=== PATIENT | female | born 1935 | race Caucasian/White ===

== ENCOUNTER 2018-03-23 11:34 | Emergency (ER) | payer MEDICARE, OTHER ==
--- NOTE | 2018-03-23 12:59 | EDM.PDOC ---
ED HPI GENERAL MEDICAL PROBLEM - General Chief Complaint: Abdominal Pain Stated Complaint: HERNIA ISSUES Time Seen by Provider: 03/23/18 12:58 Source of Information: Reports: Patient History Limitations: Reports: No Limitations - History of Present Illness INITIAL COMMENTS - FREE TEXT/NARRATIVE: pt arrived with abdomnal pain in the left side. She was very uncomfortable during the nite. She has a known ventral hernia. Onset: Other ( the pain was very bad last nite. She was seen brock constipation on at the clinic. ) Duration: Hour(s): Location: Reports: Abdomen Associated Symptoms: Reports: No Other Symptoms - Related Data Allergies Allergy/AdvReac Type Severity Reaction Status Date / Time No Known Allergies Allergy Verified 03/23/18 12:38 Home Meds: Home Meds Albuterol [Ventolin HFA] 03/23/18 [History] Budesonide/Formoterol [Symbicort 160-4.5 MCG] 03/23/18 [History] Fluticasone Furoate [Flonase Sensimist] 03/23/18 [History] Levothyroxine 03/23/18 [History] Lisinopril 03/23/18 [History] Lovastatin 03/23/18 [History] PARoxetine HCl [Paroxetine ER] 03/23/18 [History] Pantoprazole 03/23/18 [History] Past Medical History - Past Surgical History Respiratory Surgical History: Reports: Lung Resection GI Surgical History: Reports: Appendectomy Female Surgical History: Reports: Hysterectomy Social & Family History - Tobacco Use Smoking Status *Q: Never Smoker ED ROS GENERAL - Review of Systems Review Of Systems: See Below Constitutional: Reports: No Symptoms HEENT: Reports: No Symptoms Respiratory: Reports: No Symptoms Cardiovascular: Reports: No Symptoms Endocrine: Reports: No Symptoms GI/Abdominal: Reports: Abdominal Pain, Other ( no bm since sunday when she was given laxatives. ) : Reports: No Symptoms Musculoskeletal: Reports: No Symptoms Skin: Reports: No Symptoms ED EXAM, GI/ABD - Physical Exam Exam: See Below Text/Narrative:: pt has some what generalized abdomanal pain. She has not been vomiting. She was constipated on sunday and feels she is still having problems. today for awhile she had severe abdomanal pain Exam Limited By: No Limitations General Appearance: Alert, Mild Distress, Other (pain is much better than it was at home. ) Ears: Normal TMs Nose: Normal Inspection Throat/Mouth: Normal Inspection Head: Atraumatic Neck: Normal Inspection Respiratory/Chest: No Respiratory Distress Cardiovascular: Regular Rate, Rhythm GI/Abdominal Exam: Soft, Other ( tender in the rt lower abdoman no true guarding , She has some left mid abdomanal tenderness. ) (Female) Exam: Deferred Rectal (Female) Exam: Deferred Back Exam: Normal Inspection Extremities: Normal Inspection Neurological: Alert, Oriented, Normal Cognition Course - Vital Signs Last Recorded V/S: Last Vital Signs Temp 35.8 C 03/23/18 12:45 Pulse 82 03/23/18 15:58 Resp 16 03/23/18 15:58 BP 106/70 03/23/18 15:58 Pulse Ox 92 L 03/23/18 12:45 - Orders/Labs/Meds Orders: Active Orders 24 hr Category Date Time Status Abdomen Pelvis wo Cont [CT] Stat Exams 03/23/18 14:03 Taken CULTURE URINE [RM] Stat Lab 03/23/18 14:07 Received UA W/MICROSCOPIC [URIN] Urgent Lab 03/23/18 13:48 Ordered Labs: Laboratory Tests 03/23/18 03/23/18 03/23/18 Range/Units 12:58 13:08 13:48 WBC 11.2 H (4.5-11.0) K/uL RBC 3.74 (3.30-5.50) M/uL Hgb 11.0 L (12.0-15.0) g/dL Hct 35.6 L (36.0-48.0) % MCV 95 (80-98) fL MCH 29 (27-31) pg MCHC 31 L (32-36) % Plt Count 370 (150-400) K/uL Neut % (Auto) 60 (36-66) % Lymph % (Auto) 22 L (24-44) % [place] % (Auto) 8 H (2-6) % Eos % (Auto) 9 H (2-4) % Baso % (Auto) 1 (0-1) % Sodium 140 (140-148) mmol/L Potassium 4.5 (3.6-5.2) mmol/L Chloride 102 (100-108) mmol/L Carbon Dioxide 30 (21-32) mmol/L Anion Gap 8.5 (5.0-14.0) mmol/L BUN 21 H (7-18) mg/dL Creatinine 1.4 H (0.6-1.0) mg/dL Est Cr Clr Drug Dosing 25.63 mL/min Estimated GFR (MDRD) 36 L (>60) Glucose 107 H (74-106) mg/dL Calcium 8.8 (8.5-10.1) mg/dL Total Bilirubin 0.4 (0.2-1.0) mg/dL AST 16 (15-37) U/L ALT 17 (12-78) U/L Alkaline Phosphatase 82 (46-116) U/L C-Reactive Protein 0.07 (0.0-0.3) mg/dL Total Protein 7.2 (6.4-8.2) g/dL Albumin 3.6 (3.4-5.0) g/dL Globulin 3.6 H (2.3-3.5) g/dL Albumin/Globulin Ratio 1.0 L (1.2-2.2) Urine Color Yellow Urine Appearance Cloudy Urine pH 5.0 (4.5-8.0) Ur Specific [place] 1.020 (1.008-1.030) Urine Protein Negative (NEGATIVE) mg/dL Urine Glucose (UA) Normal (NEGATIVE) mg/dL Urine Ketones Negative (NEGATIVE) mg/dL Urine Occult Blood Negative (NEGATIVE) Urine Nitrite Negative (NEGATIVE) Urine Bilirubin Negative (NEGATIVE) Urine Urobilinogen Normal (NORMAL) mg/dL Ur Leukocyte Esterase Large (NEGATIVE) Urine RBC 0-5 (0-5) Urine WBC 10-20 H (0-5) Ur Epithelial Cells Many Amorphous Sediment Not seen Urine Bacteria Moderate Urine Mucus Few Meds: Medications Discontinued Medications Generic Name Dose Route Start Last Admin Trade Name Freq PRN Reason Stop Dose Admin Magnesium Citrate 296 ml 03/23/18 16:06 Citrate Of Magnesia PO 03/23/18 16:07 ONETIME ONE - Re-Assessments/Exams Free Text/Narrative Re-Assessment/Exam: 03/23/18 16:12 cat scan of the abdoman was neg for acute findings. She is feeling much better. Her renal funtion is somewhat impaired. 03/23/18 16:13 Departure - Departure Time of Disposition: 16:03 Disposition: Home, Self-Care 01 Condition: Fair Clinical Impression: Constipation, UTI (urinary tract infection) - Discharge Information Referrals: PCP,None [Primary Care Provider] - Forms: ED Department Discharge Care Plan Goals: push fluids, mag citrate 1 bottle after she gets home, eat 4 or 5 prunes daily, gummy fibers 1-2 daily to keep bowels open, high fiber diet. If persistent problems see regular Dr. nelson 500mg bid for 7 days. - My Orders Last 24 Hours: My Active Orders 03/23/18 13:48 UA W/MICROSCOPIC [URIN] Urgent 03/23/18 14:03 Abdomen Pelvis wo Cont [CT] Stat 03/23/18 14:07 CULTURE URINE [RM] Stat - Assessment/Plan Last 24 Hours: My Active Orders 03/23/18 13:48 UA W/MICROSCOPIC [URIN] Urgent 03/23/18 14:03 Abdomen Pelvis wo Cont [CT] Stat 03/23/18 14:07 CULTURE URINE [RM] Stat
[2018-03-23] MEDS ORDERED: Magnesium Citrate Solution 296 ML Bottle PO ONE (16:06)
== END 2018-03-23 16:14 | disposition home or self-care (01) ==
LOC: JP.ED 11:34
DX: K59.00 Constipation, unspecified (principal); N39.0 Urinary tract infection, site not specified; Z79.899 Other long term (current) drug therapy; Z90.710 Acquired absence of both cervix and uterus
CPT/HCPCS: 36415; 74176; 80053; 81001; 85025; 86140; 87086; 99284; A9270

== ENCOUNTER 2018-03-30 13:03 | Emergency (ER) | payer MEDICARE, OTHER ==
--- NOTE | 2018-03-30 14:23 | EDM.PDOC ---
ED HPI GENERAL MEDICAL PROBLEM - General Chief Complaint: Abdominal Pain Stated Complaint: RT SIDED ABDOMEN PAIN, HERNIA Time Seen by Provider: 03/30/18 14:00 Source of Information: Reports: Patient, Family History Limitations: Reports: No Limitations - History of Present Illness INITIAL COMMENTS - FREE TEXT/NARRATIVE: 82-year-old female who had a surgery a year ago on the left side of her upper abdomen and is having persistent discomfort since that time. This is her third visit in the last 3 weeks to discuss his chronic symptoms. Her appetite is good , she's had no fevers, her bowels are working, but she just feels she might need something done to this discomfort. She has had a surgical follow-up and he said everything was fine. She was seen within the last 2 weeks in the emergency room and a CT was normal. Onset: Gradual Duration: Other (Symptoms been ongoing for months) Location: Reports: Abdomen Left Lower Abdomen Pain Score (Numeric/FACES): 4 - Related Data Allergies Allergy/AdvReac Type Severity Reaction Status Date / Time No Known Allergies Allergy Verified 03/30/18 13:31 Home Meds: Home Meds Albuterol [Ventolin HFA] 2 puff INH Q4H PRN 03/23/18 [History] Budesonide/Formoterol [Symbicort 160-4.5 MCG] 1 puff INH BID 03/23/18 [History] Fluticasone Furoate [Flonase Sensimist] 1 spray TOP DAILY 03/23/18 [History] Levothyroxine 0.025 mg PO DAILY 03/23/18 [History] Lovastatin 60 mg PO DAILY 03/23/18 [History] PARoxetine HCl [Paroxetine ER] 10 mg PO DAILY 03/23/18 [History] Pantoprazole 40 mg PO DAILY 03/23/18 [History] Hydrochlorothiazide/Lisinopril [Lisinopril-HCTZ 20-12.5 MG] 1 tab PO DAILY 03/30 [History] Hydrochlorothiazide/Lisinopril [Lisinopril/HCTZ 20-12.5 MG] 1 tab PO DAILY 03/30 [History] Past Medical History HEENT History: Reports: Impaired Vision Cardiovascular History: Reports: High Cholesterol, Hypertension Respiratory History: Reports: COPD, Other (See Below) [employer] History: Reports: Musculoskeletal History: Reports: Arthritis, Fracture, Osteoarthritis, Osteoporosis Other Musculoskeletal History: r leg fx Psychiatric History: Reports: Anxiety Endocrine/Metabolic History: Reports: Hypothyroidism Oncologic (Cancer) History: Reports: Uterine - Infectious Disease History Infectious Disease History: Reports: Chicken Pox, Measles, Mumps, Shingles - Past Surgical History HEENT Surgical History: Reports: Cataract Surgery Respiratory Surgical History: Reports: Lung Resection GI Surgical History: Reports: Appendectomy Female Surgical History: Reports: Hysterectomy, Salpingo-Oophorectomy Social & Family History - Tobacco Use Smoking Status *Q: Never Smoker Second Hand Smoke Exposure: No - Caffeine Use Caffeine Use: Reports: Coffee, Soda, Tea - Recreational Drug Use Recreational Drug Use: No ED ROS GENERAL - Review of Systems Review Of Systems: See Below Constitutional: Denies: Fever, Chills Respiratory: Denies: Shortness of Breath Cardiovascular: Denies: Chest Pain GI/Abdominal: Reports: Abdominal Pain, Constipation (she was diagnosed with constipation last week). Denies: Nausea, Vomiting : Reports: Other (Being treated for bacteriuria) Neurological: Reports: No Symptoms ED EXAM, GI/ABD - Physical Exam Exam: See Below Exam Limited By: No Limitations General Appearance: Alert, No Apparent Distress Respiratory/Chest: No Respiratory Distress Cardiovascular: Regular Rate, Rhythm GI/Abdominal Exam: Soft, Tender (A small amount of discomfort with palpation over the left abdomen but no guarding or rebound, no mass or distention) Neurological: Alert, Oriented Skin Exam: Warm, Dry Course - Vital Signs Last Recorded V/S: Last Vital Signs Temp 97.5 F 03/30/18 13:49 Pulse 86 03/30/18 13:49 Resp 28 H 03/30/18 13:49 BP 115/58 L 03/30/18 13:49 Pulse Ox 100 03/30/18 13:49 - Re-Assessments/Exams Free Text/Narrative Re-Assessment/Exam: 03/30/18 14:22 Lab and x-ray reviewed from previous workups. Patient was reassured that nothing acute needs to be treated. She was comfortable with that and will recheck if worsening. Departure - Departure Time of Disposition: 14:26 Disposition: Home, Self-Care 01 Condition: Good Clinical Impression: Abdominal pain - Discharge Information Instructions: Abdominal Pain, Adult, [id number] Referrals: PCP,None [Primary Care Provider] - Forms: ED Department Discharge Care Plan Goals: Continue your current medications, diet and activity as tolerated. Consider returning if worsening such as vomiting, increased pain or fever. Otherwise tried not to worry and just resume your normal routine and you should slowly improve.
== END 2018-03-30 14:26 | disposition home or self-care (01) ==
LOC: JP.ED 13:03
DX: R10.12 Left upper quadrant pain (principal); E78.00 Pure hypercholesterolemia, unspecified; I10 Essential (primary) hypertension; E03.9 Hypothyroidism, unspecified; Z79.899 Other long term (current) drug therapy
CPT/HCPCS: 99282; 99284